=== PATIENT | male | born 2005 | race Two or more races ===

== ENCOUNTER 2025-05-18 00:52 | Emergency (ER) | payer SELFPAY ==
[~2025-05-18] VITALS: Ht 167.6 cm; Wt 48.5 kg
[2025-05-18 01:47] LABS: AMPHETAMINE, URINE NEGATIVE (NEGATIVE); BARBITURATE, URINE NEGATIVE (NEGATIVE); BENZODIAZEPINE, URINE NEGATIVE (NEGATIVE); CANNABINOID, URINE NEGATIVE (NEGATIVE); COCCAINE, URINE NEGATIVE (NEGATIVE); OPIATE, URINE NEGATIVE (NEGATIVE)
[2025-05-18 02:15] LABS: PLATELET COUNT (AUTO) 229 K/uL (150-450); RED BLOOD CELL COUNT(AUTO) 4.74 MIL/uL (4.5-6.0); RED CELL DISTRIBUTION WIDTH 15.2 % (11.5-15.0); WHITE BLOOD COUNT (AUTO) 6.6 K/uL (4.3-11.0)
[2025-05-18 02:23] LABS: CALCIUM, SERUM 9.0 mg/dL (8.5-10.1); CREATININE 0.7 mg/dL (0.6-1.3); SODIUM SERUM 138 mmol/L (136-145); UREA NITROGEN, BLOOD 16 mg/dL (7-18)
[2025-05-18 02:24] LABS: SERUM AMMONIA 22 umol/L (11-32)
[2025-05-18 02:28] LABS: ALCOHOL, BLOOD 188 mg/dL (0-10); ASPARTATE AMINOTRANSFERASE 19 U/L (15-37); TOTAL PROTEIN, SERUM 8.3 g/dL (6.4-8.2)
[2025-05-18 02:29] LABS: INR 1.03 (0.91-1.10)
[2025-05-18 02:44] VITALS: BP 135/88; TEMP 97.6; O2SAT 98
[2025-05-18 03:58] LABS: APPEARANCE,URINE CLEAR (CLEAR); BLOOD, URINE NEGATIVE Ery/uL (NEGATIVE); LEUKOCYTE ESTERASE ,URINE NEGATIVE (NEGATIVE); NITRITE, URINE NEGATIVE (NEGATIVE); UGLUCOSE NEGATIVE (NEGATIVE)
== END 2025-05-18 03:44 | disposition home or self-care (01) ==
LOC: ER 00:58
DX: F10.129 Alcohol abuse with intoxication, unspecified (principal); R00.2 Palpitations; Z79.899 Other long term (current) drug therapy; Z86.2 Personal history of diseases of the blood and blood-forming organs and certain disorders involving the immune mechanism; Y90.6 Blood alcohol level of 120-199 mg/100 ml
CPT/HCPCS: 36415; 70450-TC; 71045-TC; 80048-TC; 80076-TC; 82140-TC; 82962-TC; 84484-TC; 85025-TC; 85730-TC; G0480